=== PATIENT | male | born 1990 | race African-American/Black ===

== ENCOUNTER 2016-10-14 17:32 | Emergency (ER) | payer BC ==
[2016-10-14 17:42] VITALS: BP 140/75
--- NOTE | 2016-10-14 17:57 | EDM.PDOC ---
ED HPI GENERAL MEDICAL PROBLEM - General Chief Complaint: Lower Extremity Injury/Pain Stated Complaint: PAIN RT FOOT Time Seen by Provider: 10/14/16 17:36 - History of Present Illness INITIAL COMMENTS - FREE TEXT/NARRATIVE: HISTORY AND PHYSICAL: History of present illness: The patient is a 26-year-old male with no stated medical history presents with recurrent episodic pain to the arch of his right foot along with some right heel pain. The patient has not seen a foot doctor or an orthopedic doctor for this discomfort and has intermittently been using ibuprofen for the pain. The patient does do a lot of standing and the only trauma he can recall is when he jumped off of a structure [place] feet high and landed on his feet but did not note any acute pain at that time and did not think that he injured it. He is not sure if this contributed to the pain but he had the pain prior to it. The patient denies any specific swelling and has no proximal ankle leg knee thigh or hip pain. He has had no systemic complaints. Review of systems: As per history of present illness and below otherwise all systems reviewed and negative. Past medical history: As per history of present illness and as reviewed below otherwise noncontributory. Surgical history: As per history of present illness and as reviewed below otherwise noncontributory. Social history: No reported history of drug or alcohol abuse. Family history: As per history of present illness and as reviewed below otherwise noncontributory. Physical exam: Gen.: Well-developed stocky man who is nontoxic and speaking clearly and easily in the ED HEENT: Atraumatic, normocephalic, negative for conjunctival pallor or scleral icterus, mucous membranes moist, throat clear, neck supple, nontender, trachea midline. Lungs: Clear to auscultation, breath sounds equal bilaterally, chest nontender. Heart: S1S2, regular rate and rhythm no overt murmurs. Abdomen: Soft, nondistended, nontender. NABS Pelvis: Stable nontender. Genitourinary: Deferred. Rectal: Deferred. Extremities: Atraumatic, negative for cords or calf pain. On visual inspection there is no swelling of the ankle foot or toes and neurovascular is intact. There is no erythema. The patient visibly has no arch and is very flattened and there is only mild tenderness to palpation within the fascia of the arch and there is also some tenderness at palpation of the heel. There are no palpable any deformities. Neurovascular unremarkable. Neuro: Awake, alert, oriented. Cranial nerves II through XII unremarkable. Cerebellum unremarkable. Motor and sensory unremarkable throughout. Exam nonfocal. Diagnostics: X-ray right foot Therapeutics: Toradol Law to foot I did discuss with the patient that as this problem and this pain has been ongoing for about a year that we would not miss early be able to make a definitive diagnosis and that I would refer him to podiatry. Will start him on a more regular regimen of anti-inflammatories. I will give him referrals for podiatry. Impression: Right foot/arch/heel pain chronic Definitive disposition and diagnosis as appropriate pending reevaluation and review of above. Right Feet Pain Score (Numeric/FACES): 4 - Related Data Allergies Allergy/AdvReac Type Severity Reaction Status Date / Time No Known Allergies Allergy Verified 10/14/16 17:40 Home Meds: Home Meds . [No Known Home Meds] 12/16/14 [History] Past Medical History - Past Health History Medical/Surgical History: Denies Medical/Surgical History Social & Family History - Family History Family Medical History: Noncontributory - Tobacco Use Smoking Status *Q: Never Smoker Second Hand Smoke Exposure: No - Caffeine Use Caffeine Use: Reports: Coffee - Recreational Drug Use Recreational Drug Use: No Review of Systems - Review of Systems Review Of Systems: ROS reveals no pertinent complaints other than HPI. ED EXAM, GENERAL - Physical Exam Exam: See Below (See dictation) Course - Vital Signs Last Recorded V/S: Last Vital Signs Temp 36.4 C 10/14/16 17:40 Pulse 89 10/14/16 17:40 Resp 16 10/14/16 17:40 BP 140/75 10/14/16 17:40 Pulse Ox 99 10/14/16 17:40 - Orders/Labs/Meds Orders: Active Orders 24 hr Category Date Time Status Foot Comp Min 3V Rt [CR] Stat Exams 10/14/16 17:51 Taken DME for Discharge [COMM] Stat Oth 10/14/16 18:43 Ordered Meds: Medications Discontinued Medications Generic Name Dose Route Start Last Admin Trade Name Freq PRN Reason Stop Dose Admin Ketorolac Tromethamine 60 mg 10/14/16 17:51 10/14/16 18:07 Toradol IM 10/14/16 17:52 Not Given ONETIME ONE Departure - Departure Time of Disposition: 18:43 Disposition: Home, Self-Care 01 Condition: Good Clinical Impression: Right foot pain - Discharge Information Referrals: PCP,None [Primary Care Provider] - Forms: ED Department Discharge Additional Instructions: The following information is given to patients seen in the emergency department who are being discharged to home. This information is to outline your options for follow-up care. We provide all patients seen in our emergency department with a follow-up referral. The need for follow-up, as well as the timing and circumstances, are variable depending upon the specifics of your emergency department visit. If you don't have a primary care physician on staff, we will provide you with a referral. We always advise you to contact your personal physician following an emergency department visit to inform them of the circumstance of the visit and for follow-up with them and/or the need for any referrals to a consulting specialist. The emergency department will also refer you to a specialist when appropriate. This referral assures that you have the opportunity for followup care with a specialist. All of these measure are taken in an effort to provide you with optimal care, which includes your followup. Under all circumstances we always encourage you to contact your private physician who remains a resource for coordinating your care. When calling for followup care, please make the office aware that this follow-up is from your recent emergency room visit. If for any reason you are refused follow-up, please contact the [facility] emergency department at and ask to speak to the emergency department charge nurse. Dr Marina Gomez [address] [address] [facility] Specialty clinic- Podiatry [address] [place] [address] Fax: [phone] [facility] Primary care- Internal Medicine and Family [facility] [address] [place] [id number] Please call and follow-up with one of our podiatrists using resources given to above for further care and evaluation. Please use the prescribed diclofenac for inflammation and pain. Use Law during the day on the foot for support and to reduce swelling but remove it all sleep times. Return to ER as needed and as discussed. - My Orders Last 24 Hours: My Active Orders 10/14/16 17:51 Foot Comp Min 3V Rt [CR] Stat 10/14/16 18:43 DME for Discharge [COMM] Stat - Assessment/Plan Last 24 Hours: My Active Orders 10/14/16 17:51 Foot Comp Min 3V Rt [CR] Stat 10/14/16 18:43 DME for Discharge [COMM] Stat
[2016-10-14] MEDS: Ketorolac 60 MG/2 ML SDV IM ONE ×2 (18:05→18:07)
--- NOTE | 2016-10-15 08:40 | CR ---
EXAM DATE: 10/14/16 PATIENT'S AGE: 26 Patient: [facility] Facility: [place], [place] Site . Site : 1990 Study: XRay Extremity Right foot [id number] 6:18:12 PM Ordering Physician: Lakia Gudino Final Report: INDICATION: Right foot pain at level of arch and heel. TECHNIQUE: Foot radiograph 3 views COMPARISON: None FINDINGS: Bones: Alignment is normal. No acute fractures or aggressive osseous lesions seen. Joint spaces: The visualized hindfoot, midfoot, and forefoot joints are unremarkable in appearance. Soft tissues: Unremarkable. No radiopaque foreign bodies are noted. IMPRESSION: 1. Negative right foot series. Dictated by Flaco Castillo MD @ 10/14/2016 6:41:29 PM Dictated by: Flaco Castillo MD @ 10/14/2016 18:41:32 (Electronic Signature) Report Signed by Proxy. JEFFREY
== END 2016-10-14 18:51 | disposition home or self-care (01) ==
LOC: MW.ED 17:32
DX: M79.671 Pain in right foot (principal); G89.29 Other chronic pain
CPT/HCPCS: 73630-26-RT; 73630-RT; 99283; J1885

== ENCOUNTER 2018-12-25 20:17 | Emergency (ER) | payer BC ==
--- NOTE | 2018-12-25 20:24 | EDM.PDOC ---
ED HPI GENERAL MEDICAL PROBLEM - General Chief Complaint: General Stated Complaint: DIZZY Time Seen by Provider: 12/25/18 20:23 Source of Information: Reports: Patient History Limitations: Reports: No Limitations - History of Present Illness INITIAL COMMENTS - FREE TEXT/NARRATIVE: HISTORY AND PHYSICAL: History of present illness: Patient is a 28-year-old male presents to the ED with complaint of dizziness. He states he was eating dinner tonight and afterwards he stood up and felt lightheaded. He denies symptoms at this time, states it only occurs with standing. He denies chest pain, shortness of breath, headache, fevers, chills, nausea, vomiting. He reports history of diabetes. He states he had recently cut out sugar from his diet but has been drinking a lot of fluids. Review of systems: As per history of present illness and below otherwise all systems reviewed and negative. Past medical history: As per history of present illness and as reviewed below otherwise noncontributory. Surgical history: As per history of present illness and as reviewed below otherwise noncontributory. Social history: No reported history of drug or alcohol abuse. Family history: As per history of present illness and as reviewed below otherwise noncontributory. Physical exam: General: Patient sitting comfortably in no acute distress and nontoxic appearing HEENT: Atraumatic, normocephalic, pupils reactive, negative for conjunctival pallor or scleral icterus, mucous membranes moist, throat clear, neck supple, nontender, trachea midline. No meningeal signs. Lungs: Clear to auscultation, breath sounds equal bilaterally, chest nontender. Heart: S1S2, regular, negative for clicks, rubs, or overt murmur. Abdomen: Soft, nondistended, nontender. Negative for masses or hepatosplenomegaly. Negative for costovertebral tenderness. No rigidity, rebound , guarding. Pelvis: Stable nontender. Genitourinary: Deferred. Rectal: Deferred. Extremities: Atraumatic, negative for cords or calf pain. Neurovascular unremarkable. Neuro: Awake, alert, oriented. Cranial nerves II through XII unremarkable. Cerebellum unremarkable. Motor and sensory unremarkable throughout. Exam nonfocal. Notes: Diagnostics: CBC, CMP, EKG, orthostatic vitals Therapeutics: 1L NS IV Prescriptions: Azithromycin Impression: Dehydration, orthostatic hypotension, bronchitis Plan: Drink plenty of fluids as instructed Follow up with primary care provider Return to ED as needed as discussed Definitive disposition and diagnosis as appropriate pending reevaluation and review of above. no pain Pain Score (Numeric/FACES): 0 - Related Data Allergies Allergy/AdvReac Type Severity Reaction Status Date / Time No Known Allergies Allergy Verified 12/25/18 20:24 Home Meds: Home Meds . [No Known Home Meds] 12/16/14 [History] Past Medical History - Past Health History Medical/Surgical History: Denies Medical/Surgical History HEENT History: Reports: None Cardiovascular History: Reports: None Respiratory History: Reports: None Musculoskeletal History: Reports: None - Past Surgical History HEENT Surgical History: Reports: None Cardiovascular Surgical History: Reports: None Musculoskeletal Surgical History: Reports: None Social & Family History - Family History Family Medical History: Noncontributory - Caffeine Use Caffeine Use: Reports: Coffee ED ROS GENERAL - Review of Systems Review Of Systems: ROS reveals no pertinent complaints other than HPI. ED EXAM, GENERAL - Physical Exam Exam: See Below (see dictation) Course - Vital Signs Last Recorded V/S: Last Vital Signs Temp 95.9 F 12/25/18 20:24 Pulse 81 12/25/18 20:40 Resp 18 12/25/18 20:40 BP 135/78 12/25/18 20:40 Pulse Ox 98 12/25/18 20:40 Orthostatic Blood Pressure [ 111/45 Standing] Orthostatic Blood Pressure [ 155/84 Sitting] Orthostatic Blood Pressure [ 152/83 Supine] - Orders/Labs/Meds Orders: Active Orders 24 hr Category Date Time Status EKG Documentation Completion [RC] STAT Care 12/25/18 20:27 Active Sodium Chloride 0.9% [Normal Saline] 1,000 ml Med 12/25/18 20:27 Active IV STAT Sodium Chloride 0.9% [Saline Flush] Med 12/25/18 20:27 Active 10 ml FLUSH ASDIRECTED PRN Sodium Chloride 0.9% [Saline Flush] Med 12/25/18 20:27 Active 2.5 ml FLUSH ASDIRECTED PRN Saline Lock Insert [OM.PC] Stat Oth 12/25/18 20:27 Ordered Medication Orders Sodium Chloride (Normal Saline) 1,000 mls @ 999 mls/hr IV STAT ONE Stop: 12/25/18 21:27 Last Admin: 12/25/18 20:30 Dose: 999 mls/hr Sodium Chloride (Saline Flush) 10 ml FLUSH ASDIRECTED PRN PRN Reason: Keep Vein Open Last Admin: 12/25/18 20:37 Dose: 10 ml Sodium Chloride (Saline Flush) 2.5 ml FLUSH ASDIRECTED PRN PRN Reason: Keep Vein Open Last Admin: 12/25/18 20:37 Dose: 2.5 ml Labs: Laboratory Tests 12/25/18 12/25/18 Range/Units 20:20 20:20 WBC 9.75 (4.0-11.0) K/uL RBC 5.81 (4.50-5.90) M/uL Hgb 15.9 (13.0-17.0) g/dL Hct 47.0 (38.0-50.0) % MCV 80.9 (80.0-98.0) fL MCH 27.4 (27.0-32.0) pg MCHC 33.8 (31.0-37.0) g/dL RDW Std Deviation 38.8 (28.0-62.0) fl RDW Coeff of Alexei 13 (11.0-15.0) % Plt Count 362 (150-400) K/uL MPV 10.30 (7.40-12.00) fL Neut % (Auto) 51.7 (48.0-80.0) % Lymph % (Auto) 39.2 (16.0-40.0) % Catron % (Auto) 7.7 (0.0-15.0) % Eos % (Auto) 0.9 (0.0-7.0) % Baso % (Auto) 0.5 (0.0-1.5) % Neut # (Auto) 5.0 (1.4-5.7) K/uL Lymph # (Auto) 3.8 H (0.6-2.4) K/uL Catron # (Auto) 0.8 (0.0-0.8) K/uL Eos # (Auto) 0.1 (0.0-0.7) K/uL Baso # (Auto) 0.1 (0.0-0.1) K/uL Nucleated RBC % 0.0 /100WBC Nucleated RBCs # 0 K/uL Sodium 140 (136-148) mmol/L Potassium 3.7 (3.5-5.1) mmol/L Chloride 100 (98-107) mmol/L Carbon Dioxide 24.4 (21.0-32.0) mmol/L BUN 12 (7.0-18.0) mg/dL Creatinine 1.4 H (0.8-1.3) mg/dL Est Cr Clr Drug Dosing 72.13 mL/min Estimated GFR (MDRD) > 60.0 ml/min Glucose 112 H (74-106) mg/dL Calcium 9.4 (8.5-10.1) mg/dL Total Bilirubin 1.2 H (0.2-1.0) mg/dL AST 27 (15-37) IU/L ALT 39 (14-63) IU/L Alkaline Phosphatase 87 (46-116) U/L Total Protein 9.0 H (6.4-8.2) g/dL Albumin 4.0 (3.4-5.0) g/dL Globulin 5.0 H (2.6-4.0) g/dL Albumin/Globulin Ratio 0.8 L (0.9-1.6) Meds: Medications Generic Name Dose Route Start Last Admin Trade Name Freq PRN Reason Stop Dose Admin Sodium Chloride 1,000 mls @ 999 mls/hr 12/25/18 20:27 12/25/18 20:30 Normal Saline IV 12/25/18 21:27 999 mls/hr STAT ONE Administration Sodium Chloride 10 ml 12/25/18 20:27 12/25/18 20:37 Saline Flush FLUSH 10 ml ASDIRECTED PRN Administration Keep Vein Open Sodium Chloride 2.5 ml 12/25/18 20:27 12/25/18 20:37 Saline Flush FLUSH 2.5 ml ASDIRECTED PRN Administration Keep Vein Open Departure - Departure Time of Disposition: 21:20 Disposition: Home, Self-Care 01 Condition: Good Clinical Impression: Dehydration, Orthostatic hypotension, Bronchitis - Discharge Information Referrals: PCP,None [Primary Care Provider] - Forms: ED Department Discharge Additional Instructions: The following information is given to patients seen in the emergency department who are being discharged to home. This information is to outline your options for follow-up care. We provide all patients seen in our emergency department with a follow-up referral. The need for follow-up, as well as the timing and circumstances, are variable depending upon the specifics of your emergency department visit. If you don't have a primary care physician on staff, we will provide you with a referral. We always advise you to contact your personal physician following an emergency department visit to inform them of the circumstance of the visit and for follow-up with them and/or the need for any referrals to a consulting specialist. The emergency department will also refer you to a specialist when appropriate. This referral assures that you have the opportunity for follow-up care with a specialist. All of these measure are taken in an effort to provide you with optimal care, which includes your follow-up. Under all circumstances we always encourage you to contact your private physician who remains a resource for coordinating your care. When calling for follow-up care, please make the office aware that this follow-up is from your recent emergency room visit. If for any reason you are refused follow-up, please contact the [facility] Emergency Department at and asked to speak to the emergency department charge nurse. [facility] [address] [place] [address] [address] Drink plenty of fluids as instructed Follow up with primary care provider Return to ED as needed as discussed - My Orders Last 24 Hours: My Active Orders 12/25/18 20:27 EKG Documentation Completion [RC] STAT Sodium Chloride 0.9% [Normal Saline] 1,000 ml IV STAT Sodium Chloride 0.9% [Saline Flush] 10 ml FLUSH ASDIRECTED PRN Sodium Chloride 0.9% [Saline Flush] 2.5 ml FLUSH ASDIRECTED PRN Saline Lock Insert [OM.PC] Stat - Assessment/Plan Last 24 Hours: My Active Orders 12/25/18 20:27 EKG Documentation Completion [RC] STAT Sodium Chloride 0.9% [Normal Saline] 1,000 ml IV STAT Sodium Chloride 0.9% [Saline Flush] 10 ml FLUSH ASDIRECTED PRN Sodium Chloride 0.9% [Saline Flush] 2.5 ml FLUSH ASDIRECTED PRN Saline Lock Insert [OM.PC] Stat
[2018-12-25] MEDS ORDERED: Sodium Chloride 0.9% 10 ML Syringe FLUSH PRN (20:27)
[2018-12-25] MEDS ORDERED: Sodium Chloride 0.9% 1,000 ML IV ONE (20:27)
[2018-12-25] MEDS ORDERED: Sodium Chloride 0.9% 2.5 ML Syringe FLUSH PRN (20:27)
[2018-12-25 20:53] LABS: BLOOD UREA NITROGEN,BUN 12 mg/dL (7.0-18.0); CARBON DIOXIDE,CO2 24.4 mmol/L (21.0-32.0); CHLORIDE,CL 100 mmol/L (98-107); GLUCOSE RANDOM 112 mg/dL (74-106); POTASSIUM,K 3.7 mmol/L (3.5-5.1); SODIUM,NA 140 mmol/L (136-148)
--- NOTE | 2018-12-25 21:17 | CR ---
Indication: Dizziness. Technique: Chest, 1 AP portable view. Comparison: None available. Findings: No pneumothorax, pleural effusion or focal airspace consolidation. Cardiac and mediastinal contours are within normal limits. No pulmonary edema. Upper abdomen and osseous structures as imaged show no acute abnormality. Impression: No evidence of acute cardiopulmonary disease. Dictated by Koby Choi MD @ 12/25/2018 9:15:26 PM Dictated by: Koby Choi MD @ 12/25/2018 21:15:31 (Electronically Signed)
[2018-12-25 21:30] VITALS: BP 121/93; PULSE 88
== END 2018-12-25 21:39 | disposition home or self-care (01) ==
LOC: MW.ED 20:17
DX: E86.0 Dehydration (principal); I95.1 Orthostatic hypotension; J40 Bronchitis, not specified as acute or chronic; E11.9 Type 2 diabetes mellitus without complications
CPT/HCPCS: 36415; 71045; 80053; 85025; 96360; 99284; J7040

== ENCOUNTER 2019-03-25 08:31 | Emergency (ER) | payer BC ==
[2019-03-25] MEDS ORDERED: Ibuprofen 600 MG Tab PO ONE (08:45)
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
--- NOTE | 2019-03-25 10:17 | CR ---
Right hand: 3 views of the right hand were obtained. Comparison: No previous hand exam. Joint spaces are preserved. No fracture, dislocation or other bony abnormality is seen. Impression: 1. No bony abnormality is identified on right hand exam. Diagnostic code #1 This report was dictated in [place] [employer] Time
[2019-03-25 10:54] VITALS: BP 149/95; PULSE 77
== END 2019-03-25 10:52 | disposition home or self-care (01) ==
LOC: MW.ED 08:31
DX: M79.641 Pain in right hand (principal); E66.9 Obesity, unspecified; Z68.42 Body mass index [BMI] 45.0-49.9, adult; V89.2XXA Person injured in unspecified motor-vehicle accident, traffic, initial encounter
CPT/HCPCS: 73130; 99284; A9270; 99283